=== PATIENT | female | born 2000 | race Caucasian/White ===

== ENCOUNTER 2022-10-29 23:59 | Emergency (ER) | payer OTHER, SELFPAY ==
[2022-10-30 00:03] VITALS: BP 138/75; PULSE 86; RESP 18; TEMP 36.6; O2SAT 98; BMI 35.4
[2022-10-30 00:29] LABS: IDNOW Serial# 08D9AD1C; Strep A Nucleic Acid Negative (Negative)
[2022-10-30 00:34] LABS: COVID-19 Test Negative (Negative); IDNOW Serial# BCCEAD1C
[2022-10-30 00:35] LABS: IDNOW Serial# 9DB6401D; Influenza A Negative (Negative); Influenza B2 Negative (Negative)
--- NOTE | 2022-10-30 00:54 | ED.URI ---
HPI - URI/Sore Throat General Chief Complaint: Upper Respiratory Symptoms Stated Complaint: sore throat Time Seen by Provider: 10/30/22 00:42 Source: patient Mode of arrival: ambulatory Limitations: no limitations History of Present Illness HPI Narrative: Patient comes in the emergency room complaining of a sore throat that started today. Patient complaining pain with swallowing, no difficulty breathing. Patient states that she is also approximately 6 weeks of gestational age. Patient denies fever chills. Related Data Previous Rx's Medication Instructions Recorded cephalexin 500 mg capsule 500 mg PO BID #14 caps 10/30/22 Allergies Allergy/AdvReac Type Severity Reaction Status Date / Time Penicillins Allergy Intermediate Shortness Verified 10/30/22 00:02 of Breath Review of Systems Review of Systems: Constitutional : No Weight loss, No Fever, No Chills, No Night Sweats, No Fatigue, No Malaise ENT/Mouth : No Hearing loss, No Ear Pain, No Nasal Congestion, No Sinus Pain, No Hoarseness, complaining of sore throat, No Rhinorrhea, No Swallowing Difficulty Eyes: No Eye Pain, No Swelling, No Redness, No Foreign Body, No Discharge, No Vision Changes Cardiovascular : No Chest Pain, No SOB, No Dyspnea on Exertion, No Orthopnea, No Edema, No Palpitations Respiratory : No Cough, No Sputum, No Wheezing, No Smoke Exposure, No Dyspnea Gastrointestinal : Occasional nausea and vomiting due to , No Diarrhea, No Constipation, No abdominal Pain, No Hematochezia, No Melena Genitourinary : no irregular bleeding, No Dysuria, No Urinary Frequency, No Hematuria, No Urinary Incontinence, No Urgency, No Flank Pain, No Urinary Flow Changes, No Hesitancy Musculoskeletal : No joint pain, No Myalgias, No Joint Swelling Skin : No Skin Lesions, No rash Neuro : No Weakness, No Numbness, No Paresthesias, No Loss of Consciousness, No Dizziness, No Headache Psych : No Anxiety/Panic, No Depression, No SI/HI/AH/VH, No Social Issues, Heme/Lymph: No Bruising, No Bleeding,No Lymphadenopathy Endocrine : No Polyuria, No Polydipsia, No Temperature Intolerance PMFSH Social History Social History Advance Directives: No Advance Directives Information Provided: No Physical Exam Vital Signs: Vital Signs: Last Vital Signs Temp 98 F 10/30/22 00:03 Pulse 86 10/30/22 00:03 Resp 18 10/30/22 00:03 BP 138/75 10/30/22 00:03 Pulse Ox 98 10/30/22 00:03 O2 Del Method Room Air 10/30/22 00:03 BMI result Body Mass Index 35.4 Const: Other: Appearance: Alert. Oriented X3. No acute distress. Eyes: Pupils equal, round and reactive to light. ENT: No visualized abscess, patient has white exudates bilaterally Neck: Normal inspection. Neck supple. No lymph nodes noted. No crepitus CVS: Normal heart rate and rhythm. Pulses normal. Normal S1 and S2 Respiratory: No respiratory distress. Breath sounds normal. No Wheezing. No rales Abdomen: Soft and nontender. No rigidity. No distention. Skin: Skin warm and dry. Normal skin color. Normal skin turgor. Extremities: No lower extremity edema. No Lacerations. No Rash Neuro: Oriented X 3. No motor deficit. No sensory deficit. Moving all extremities. No slurred speech. CN 2 through 12 grossly intact Psych: calm, cooperative, normal affect Medical Decision Making Medical Decision Making [facility] Narrative: -my interpretation of labs: Patient tested negative for COVID and strep. However, patient's tonsils are covered in white exudates, we are going to go ahead and start treatment. Patient is allergic to penicillin, states she gets hives. Patient given p.o. Decadron and cephalexin -mononucleosis was considered. However, patient has no fatigue, no fever, symptoms started today Differential Diagnosis Differential Diagnoses: The differential diagnosis associated with the presentation includes (Bacterial pharyngitis, viral pharyngitis, mononucleosis) Lab Data [facility] Lab Attestation statement: I reviewed the patient's lab results. Labs: Lab Results 10/30/22 10/30/22 10/30/22 Range/Units 00:11 00:12 00:12 COVID-19 (JONAS) Negative (Negative) COVID-19 Clin Com See Note Influenza Type A (JONATAN) Negative (Negative) Influenza Type B (JONATAN) Negative (Negative) Influenza A & B Note See Note S. pyogenes GrpA JONATAN Negative (Negative) Discharge Plan Discharge Clinical Impression: Pharyngitis Patient Disposition: Home, Self-Care Instructions: Pharyngitis (ED) Additional Instructions: Please follow-up with your primary care physician tomorrow. If you have any worsening or new symptoms, please return to the emergency room or call 911 Prescriptions: New cephalexin 500 mg capsule 500 mg PO BID Qty: 14 0RF
[2022-10-30] MEDS: cephALEXin 500 MG CAPSULE PO (00:56)
[2022-10-30] MEDS: Mag&Al/Sim/Diphenhyd/Lidocaine 10 ML ORAL.SUSP PO (00:56)
[2022-10-30] MEDS: dexAMETHasone sod phosphate 4 MG/ML VIAL 6 MG IVPUSH (00:57)
== END 2022-10-30 01:07 | disposition home or self-care (01) ==
PROVIDERS: Emergency Provider Emergency Medicine; PCP Student in an Organized Health Care Education/Training Program
DX: J02.9 Acute pharyngitis, unspecified (principal); Z20.822 Contact with and (suspected) exposure to COVID-19; Z20.828 Contact with and (suspected) exposure to other viral communicable diseases; Z79.899 Other long term (current) drug therapy
CPT/HCPCS: 87502; 87635; 87651; 99282; 99283; J1100

== ENCOUNTER 2022-11-07 03:43 | Emergency (ER) | payer OTHER, SELFPAY ==
[2022-11-07 03:51] VITALS: BP 117/68; TEMP 36.8; O2SAT 99; BMI 34.5
[2022-11-07 04:13] LABS: IDNOW Serial# 6674DD1D; Strep A Nucleic Acid Negative (Negative)
--- NOTE | 2022-11-07 07:00 | ED_ITS ---
HPI - General Adult General Chief complaint: General Medical Stated complaint: Sore Throat Time Seen by Provider: 11/07/22 06:40 Source: patient Mode of arrival: ambulatory Limitations: no limitations History of Present Illness HPI narrative: 22 yo female with history of BLOWER FEEDER DYED RAW STOCK here with complaints of 9 days of right sided sore throat. Went to [facility] ER on 11/02 and was prescribed azithromycin/decadron which she completed. Feels the sore throat is worse, difficulty with swallowing, voice change. No fevers, chills, rhinorrhea, cough, diff breathing. Currently 7 weeks followed by [facility]. Has had US to confirm IUP. No related complaints. VANESSA 06/28/23 Related Data Previous Rx's Medication Instructions Recorded cephalexin 500 mg capsule 500 mg PO BID #14 caps 10/30/22 clindamycin HCl 150 mg capsule 150 mg PO TID #21 caps 11/07/22 prednisone 20 mg tablet 40 mg PO DAILY #8 tabs 11/07/22 Allergies Allergy/AdvReac Type Severity Reaction Status Date / Time Penicillins Allergy Intermediate Shortness Verified 10/30/22 00:02 of Breath Review of Systems Review of Systems: Yes all other systems are reviewed and are negative Constitutional: Constitutional: Reports no additional constitutional complaints, Denies body ache(s), Denies chills, Denies fever(s), Denies headache(s) and Denies weakness Eyes: Eyes: Reports no additional eye complaints and Denies change in vision ENT: Reports system reviewed and no additional complaints, except as documented, Denies dizziness, Denies headache(s), Denies nasal congestion, Denies nasal discharge, Denies neck pain and Reports sore throat Cardiovascular: Cardiovascular: Reports no additional cardiovascular complaints, Denies chest pain, Denies leg edema and Denies dyspnea Respiratory: Respiratory: Reports no additional respiratory complaints, Denies cough and Denies dyspnea Gastrointestinal: Gastrointestinal: Reports no additional gastrointestinal complaints, Denies abdominal pain, Denies diarrhea, Denies nausea and Denies vomiting Genitourinary: Genitourinary: Reports no additional female genitourinary complaints and Denies urinary incontinence Musculoskeletal: Musculoskeletal: Reports no additional musculoskeletal complaints, Denies back pain, Denies arthralgias, Denies joint swelling, Denies neck pain, Denies numbness and Denies tingling Integumentary/Breasts: Skin/Breast: Reports system reviewed and no additional complaints, except as docu and Denies rash Neurologic: Reports system reviewed and no additional complaints, except as documented, Denies dizziness, Denies headache(s), Denies numbness, Denies tingling and Denies weakness PMFSH Past Medical History Attestation statement: The following information was validated with the patient. Source: old records reviewed and nursing notes reviewed Social History Social History Alcohol intake: never Smoked in Last 30 Days: No Use of substances other than those prescribed or required for medical reasons: No Advance Directives: No Advance Directives Information Provided: No Patient : Yes Physical Exam ED Vital Signs: Vital Signs - 24 hr 11/07/22 03:51 11/07/22 07:44 Temperature 98.2 F 98.6 F Pulse Rate 63 Respiratory Rate 16 Blood Pressure 117/68 115/63 Pulse Oximetry 99 99 Oxygen Delivery Method Room Air Room Air BMI result Body Mass Index 34.5 Const General: cooperative, healthy appearing, comfortable and no acute distress Orientation/consciousness: patient oriented x3 Limitations: no limitations HENMT Other: R tonsillar swelling/erythema with uvula displaced laterally. No exudate. Tolerating secretions. Head: Yes normal to inspection Ears: hearing grossly normal bilaterally and TM's normal bilaterally General nose exam: Normal external nose present Face and sinus: Yes normal facial exam Mouth: Normal oral and palatal mucosa present Throat: Yes abnormal tonsil and Yes peritonsillar mass Eyes General: appearance normal, both eyes and all related structures Pupils: Equal, round and reactive pupils present Neck Neck: Yes normal visual inspection, Yes full ROM, Yes no lymphadenopathy and Yes no meningeal signs Chest Chest palpation & inspection: normal inspection of the chest Resp Effort & Inspection: normal respiratory effort Auscultation: clear to auscultation bilaterally Cardio Rate: regular rate Rhythm: regular rhythm Peripheral pulses: Peripheral pulses 2+ throughout GI Inspection: Yes normal to inspection Palpation (GI): Soft to palpation and nontender Back/Spine/Pelvis Thoracic/Lumbar Spine: thoracic and lumbar spine normal to inspection Skin General skin exam: no rashes or lesions noted Neuro General: patient oriented x3, moves all extremities and no meningeal signs Cranial nerves: Yes Equal, round and reactive pupils present Cognition (Neuro): normal cognition Gait exam (Neuro): Normal gait present Extrem General: Yes normal to inspection Course Course Course Narrative: 0900-tolerating crackers, luciano shyla. Feels better. Will d/c home with clindamycin, prednisone. Reviewed worrisome signs and symptoms of when to return to the emergency room. Comfortable plan for discharge home. Medications Administered Discontinued Medications Generic Name Dose Route Start Last Admin Trade Name Brennen PRN Reason Stop Dose Admin Acetaminophen 650 mg 11/07/22 06:50 11/07/22 07:46 Acetaminophen Oral Liquid 650 Mg/20.3 Ml Solution PO 11/07/22 06:51 650 mg ONCE ONE Administration Dexamethasone Sodium Phosphate 10 mg 11/07/22 06:50 11/07/22 07:46 Dexamethasone Sod Phosphate 10 Mg/Ml Vial IVPUSH 11/07/22 06:51 10 mg ONCE ONE Administration Sodium Chloride 1,000 mls @ 999 mls/hr 11/07/22 06:50 11/07/22 07:46 Ns IV 11/07/22 07:50 999 mls/hr .Q1H1M STA Administration Clindamycin Phosphate 600 mg in 50 mls @ 100 mls/hr 11/07/22 06:50 11/07/22 08:22 Cleocin IV 11/07/22 07:19 100 mls/hr ONCE ONE Administration Lidocaine HCl 2 ml 11/07/22 07:35 11/07/22 07:46 Lidocaine Hcl 1 % Mpf 2 Ml Vial INFILTRATI 11/07/22 07:36 2 ml ONCE ONE Administration Lidocaine HCl 1 appl 11/07/22 07:36 11/07/22 07:45 Lidocaine Hcl 4 % [id number] 4 Ml TOPICAL 11/07/22 07:37 1 appl ONCE ONE Administration Procedures Abscess I/D Site: other (Peritonsillar) Side (if applicable): right Sedation/analgesia: none Local Anesthetic: lidocaine 1% Amount of anesthesia used (mL): 1.5 Technique: needle aspiration Amount of fluid expressed (mL): 1.5 Sent for culture/gram staining?: No Irrigation: No Packing used?: none Medical Decision Making Medical Decision Making [facility] Narrative: 22 yo female here with complaints of right sided sore throat, now with diff swallowing, voice change despite completing course of decadron/azithromycin. Of note, patient is 7 weeks with no related complaints. On exam patient is right tonsillar swelling/erythema with displacement of the uvula concerning for BLOWER FEEDER DYED RAW STOCK. She is tolerating her secretions. Will obtain labs, covid screen, mono screen, strep screen. Wlill give IVF, PO tylenol, clindamycin, decadron. May need transfer to tertiary care center for ENT consult as imaging would like to be avoided in this patient d/t vs I&D of abscess here Differential Diagnosis Differential Diagnoses: The differential diagnosis associated with the presentation includes BLOWER FEEDER DYED RAW STOCK, strep pharyngitis, mononucleosis Low concern for epiglottitis, RPA Admission/Observation Consideration of admission/observation: Escalation of care including admission/o bservation considered Discussed with patient transfer for ENT consult vs attempting I&D of BLOWER FEEDER DYED RAW STOCK here. She is agreeable with I&D and tolerated well (done by Dr Edmondson). Post procedure tolerating luciano shyla and crackers, feels better, will discharge home with oral antibiotics, ent f/u outpatient Lab Data [facility] Lab Attestation statement: I reviewed the patient's lab results. Mild leukocytosis, otherwise unremarkable 11/07/22 07:37 11/07/22 07:37 Labs: Lab Results 11/07/22 11/07/22 11/07/22 Range/Units 04:00 07:37 07:37 WBC 16.6 H (4.8-10.8) X10*3/uL RBC 5.02 (4.20-5.50) X10*6/uL Hgb 13.0 (12.0-16.0) g/dl Hct 40.4 (37.0-47.0) % MCV 80.5 (80.0-98.0) fL MCH 25.9 L (27.0-33.0) pg MCHC 32.2 (31.0-35.0) g/dl RDW 13.7 (11.0-16.0) % Plt Count 302 (160-400) X10*3/uL MPV 10.2 (9.4-12.3) fL Immature Gran % (Auto) 0.9 H (0.0-0.4) % Neut % (Auto) 78.0 H (45-73) % Lymph % (Auto) 12.3 L (20-40) % Alpine % (Auto) 8.1 (2-11) % Eos % (Auto) 0.3 (0-4) % Baso % (Auto) 0.4 (0-2) % Lymph # (Auto) 2.0 (1.2-4.9) X10*3/uL Alpine # (Auto) 1.3 H (0.1-1.2) X10*3/uL Eos # (Auto) 0.1 (0.0-0.4) X10*3/uL Baso # (Auto) 0.1 (0.0-0.2) X10*3/uL Abs Immat Gran (auto) 0.15 H (0.00-0.03) X10*3/uL Absolute Neuts (auto) 12.9 H (2.0-8.3) x10*3/uL Absolute Nucleated RBC 0.000 (0.0-0.012) X10*3/uL Nucleated RBC % (auto) 0.0 (0.0-0.2) /100WBC Sodium 136 (135-145) mmol/L Potassium 4.2 (3.3-5.1) mmol/L Chloride 102 (96-108) mmol/L Carbon Dioxide 22 (22-29) mmol/L Anion Gap 16 (12-20) BUN 9 (9-16) mg/dL Creatinine 0.73 (0.5-1.4) mg/dL Estim Creat Clear Calc 146.6 Estimated GFR > 60 Random Glucose 86 (60-115) mg/dL Calcium 9.4 (8.4-10.2) mg/dL Total Bilirubin 0.4 (0.0-1.0) mg/dL Direct Bilirubin 0.2 (0.0-0.5) mg/dL AST 12 (5-31) U/L ALT 6 (0-31) U/L Alkaline Phosphatase 55 (39-117) U/L Total Protein 7.7 (6.5-8.0) g/dL Albumin 3.9 (3.5-5.0) g/dL COVID-19 (JONAS) (Negative) COVID-19 Clin Com Monoscreen (Negative) S. pyogenes GrpA JONATAN Negative (Negative) 11/07/22 11/07/22 Range/Units 07:37 07:37 WBC (4.8-10.8) X10*3/uL RBC (4.20-5.50) X10*6/uL Hgb (12.0-16.0) g/dl Hct (37.0-47.0) % MCV (80.0-98.0) fL MCH (27.0-33.0) pg MCHC (31.0-35.0) g/dl RDW (11.0-16.0) % Plt Count (160-400) X10*3/uL MPV (9.4-12.3) fL Immature Gran % (Auto) (0.0-0.4) % Neut % (Auto) (45-73) % Lymph % (Auto) (20-40) % Alpine % (Auto) (2-11) % Eos % (Auto) (0-4) % Baso % (Auto) (0-2) % Lymph # (Auto) (1.2-4.9) X10*3/uL Alpine # (Auto) (0.1-1.2) X10*3/uL Eos # (Auto) (0.0-0.4) X10*3/uL Baso # (Auto) (0.0-0.2) X10*3/uL Abs Immat Gran (auto) (0.00-0.03) X10*3/uL Absolute Neuts (auto) (2.0-8.3) x10*3/uL Absolute Nucleated RBC (0.0-0.012) X10*3/uL Nucleated RBC % (auto) (0.0-0.2) /100WBC Sodium (135-145) mmol/L Potassium (3.3-5.1) mmol/L Chloride (96-108) mmol/L Carbon Dioxide (22-29) mmol/L Anion Gap (12-20) BUN (9-16) mg/dL Creatinine (0.5-1.4) mg/dL Estim Creat Clear Calc Estimated GFR Random Glucose (60-115) mg/dL Calcium (8.4-10.2) mg/dL Total Bilirubin (0.0-1.0) mg/dL Direct Bilirubin (0.0-0.5) mg/dL AST (5-31) U/L ALT (0-31) U/L Alkaline Phosphatase (39-117) U/L Total Protein (6.5-8.0) g/dL Albumin (3.5-5.0) g/dL COVID-19 (JONAS) Negative (Negative) COVID-19 Clin Com See Note Monoscreen Negative (Negative) S. pyogenes GrpA JONATAN (Negative) Tests considered The following testing was considered but not selected: See discussion above about avoiding CT imaging in this patient -patient agreeable Prescription Management I considered prescription management with: Antibiotic BLOWER FEEDER DYED RAW STOCK needing antibiotic coverge Attestation Attending Attestation: I reviewed REVENUE FIELD AGENT/PA/Resident note, assessment and plan. I agree with the documentation, assessment and plan unless otherwise stated. patient is a right peritonsillar abscess. Patient was offered to be transferred to a center with ENT. She opted have me during the BLOWER FEEDER DYED RAW STOCK. Patient received topical lidocaine followed by a small amount of injected lidocaine 1%. See procedure note. Approximately 0.5 cc of purulent material was removed from the BLOWER FEEDER DYED RAW STOCK. She tolerated the procedure well. There were no immediate complications. Discharge Plan Discharge Clinical Impression: Abscess, peritonsillar Patient Disposition: Home, Self-Care Instructions: Peritonsillar Abscess (ED) Additional Instructions: Start the antibiotic tomorrow Tylenol only for pain Increase fluids Follow-up with ENT in a few weeks Return for worsening symptoms Prescriptions: New clindamycin HCl 150 mg capsule 150 mg PO TID Qty: 21 0RF prednisone 20 mg tablet 40 mg PO DAILY Qty: 8 0RF No Action cephalexin 500 mg capsule 500 mg PO BID Qty: 14 0RF Referrals: Noel Chavez [Physician] - 2 weeks Stand Alone Forms: Work/School Release
[2022-11-07 07:42] LABS: MANUAL DIFF FLAG NO
[2022-11-07 07:44] VITALS: BP 115/63; PULSE 63; RESP 16; TEMP 37; O2SAT 99
[2022-11-07] MEDS: Lidocaine HCl 4 % Laryng-O-Jet 4 ML 1 APPL TOPICAL (07:45)
[2022-11-07] MEDS: dexAMETHasone sod phosphate 10 MG/ML VIAL IVPUSH (07:46)
[2022-11-07] MEDS: 0.9 % Sodium Chloride 1,000 ML 999 ML IV (07:46)
[2022-11-07] MEDS: Acetaminophen Oral Liquid 650 MG/20.3 ML SOLUTION PO (07:46)
[2022-11-07] MEDS: Lidocaine HCl 1 % MPF 2 ML VIAL INFILTRATI (07:46)
[2022-11-07 07:47] LABS: Basophils Absolute Auto 0.1 X10*3/uL (0.0-0.2); Basophils Percent Auto 0.4 % (0-2); Eosinophils Absolute Auto 0.1 X10*3/uL (0.0-0.4); Eosinophils Percent Auto 0.3 % (0-4); Hematocrit 40.4 % (37.0-47.0); Imm Gran Abs Auto 0.15 X10*3/uL (0.00-0.03); Imm Gran Pct Auto 0.9 % (0.0-0.4); Lymphocytes Percent Auto 12.3 % (20-40); Mean Corpuscular HGB Conc 32.2 g/dl (31.0-35.0); Mean Corpuscular Hemoglobin 25.9 pg (27.0-33.0); Mean Corpuscular Volume 80.5 fL (80.0-98.0); Mean Platelet Volume 10.2 fL (9.4-12.3); Monocytes Absolute Auto 1.3 X10*3/uL (0.1-1.2); Monocytes Percent Auto 8.1 % (2-11); Neutrophils Absolute Auto 12.9 x10*3/uL (2.0-8.3); Platelet Count 302 X10*3/uL (160-400); Red Blood Count 5.02 X10*6/uL (4.20-5.50); Red Cell Distribution Width 13.7 % (11.0-16.0); White Blood Count 16.6 X10*3/uL (4.8-10.8)
[2022-11-07 07:58] LABS: Alanine Aminotransferase 6 U/L (0-31); Albumin Level 3.9 g/dL (3.5-5.0); Alkaline Phosphatase 55 U/L (39-117); Anion Gap 16 (12-20); Aspartate Amino Transferase 12 U/L (5-31); Bilirubin Direct 0.2 mg/dL (0.0-0.5); Bilirubin Total 0.4 mg/dL (0.0-1.0); Blood Urea Nitrogen 9 mg/dL (9-16); Calcium 9.4 mg/dL (8.4-10.2); Carbon Dioxide 22 mmol/L (22-29); Chloride 102 mmol/L (96-108); Creatinine Clr Calc Pharmacy 146.6; Estimated Glomerular Filt Rate > 60; Glucose Random 86 mg/dL (60-115); Potassium 4.2 mmol/L (3.3-5.1); Sodium 136 mmol/L (135-145); Total Protein 7.7 g/dL (6.5-8.0)
[2022-11-07 08:02] LABS: COVID-19 Test Negative (Negative); IDNOW Serial# 08D9AD1C
--- NOTE | 2022-11-07 08:06 | PC.NURSE ---
PT'S ABSCESS WAS DRAINED FOR 2CC OF YELLOW PUS BY . PT TOLERATED VERY WELL. PT STATES THAT SHE FEELS MUCH BETTER AND I CAN SWALLOW. I HAVEN'T EATEN ANYTHING I AM STARVING . PT IS TOLERATING PO FLUIDS WELL.
[2022-11-07 08:20] LABS: Monotest Negative (Negative)
[2022-11-07] MEDS: Clindamycin Phosphate/D5W 600 MG/50 ML PIGGYBACK 100 MG IV (08:22)
--- NOTE | 2022-11-07 08:43 | PC.NURSE ---
unable to hear fhr at 7wks with ed doppler. provider rey (carly) aware.
[2022-11-07 09:20] VITALS: BP 116/67; PULSE 75; RESP 16; O2SAT 98
== END 2022-11-07 09:21 | disposition home or self-care (01) ==
PROVIDERS: Nurse Practitioner Family; Emergency Provider Emergency Medicine
DX: O26.891 Other specified pregnancy related conditions, first trimester (principal); J36 Peritonsillar abscess; Z3A.01 Less than 8 weeks gestation of pregnancy; Z20.822 Contact with and (suspected) exposure to COVID-19
CPT/HCPCS: 10160; 80048; 80076; 85025; 86308; 87635; 87651; 96374; 96375; 99284; J1100

== ENCOUNTER 2023-03-20 14:01 | Outpatient (REF) | payer OTHER, SELFPAY ==
[2023-03-20 14:38] LABS: IDNOW Serial# 08D9AD1C; Strep A Nucleic Acid Negative (Negative)
[2023-03-20 15:15] LABS: Influenza A PCR NEGATIVE (Negative); Influenza B PCR NEGATIVE (Negative); Resp Syncy Virus RNA Qual PCR NEGATIVE (Negative); SARS COV2 PCR INHOUSE POSITIVE (Negative)
== END 2023-03-20 14:02 | disposition home or self-care (01) ==
LOC: HO.LAB 14:01
PROVIDERS: Visit Provider Physician Assistant
DX: J02.9 Acute pharyngitis, unspecified (principal); Z11.52 Encounter for screening for COVID-19
CPT/HCPCS: 0241U; 87651